=== PATIENT | female | born 1930 | race Caucasian/White ===

== ENCOUNTER 2016-07-18 00:19 | Day surgery (SDC) | payer MEDICARE, OTHER ==
[~2016-07-18] VITALS: Ht 172.7 cm; Wt 88.4 kg
[2016-07-18] VITALS (15 sets, daily range): BP systolic 138–165; BP diastolic 70–78; PULSE 80–93; RESP 14–22; O2SAT 92–98
[~2016-07-18 00:19] MED LIST: AMIT10TA6 PO; ASPI325T32 PO; ATEN50TA PO; CALC-1021 PO; DETROL LA4 M1 PO; ESOM40CA41 PO; FURO40TA4 PO; GLUC-104 PO; IPRA15SP NOSTRIL; LATA2.5D6 AFFECT_EYE; LOVA40TA PO; METF500T4 PO; MULT1CAP33 PO; POTA-62 PO; TIMO5DRO26 AFFECT_EYE; [UNRECOGNIZED DRUG - CODE] PO
[2016-07-18 08:15] LABS: BASOPHILS % (AUTO) 0.6 % (0-3); EOSINOPHILS % (AUTO) 6.1 % (0-5); MONOCYTES % (AUTO) 7.2 % (4-12); Mean Corpuscular Hemoglobin 27.1 pg (27.0-35.0); Mean Corpuscular Volume 88.3 fL (81-100); NEUTROPHILS % (AUTO) 63.4 % (40-74); Platelet Count 182 bil/L (150-400)
[2016-07-18 08:44] LABS: INR 1.03 ratio
[2016-07-18] MEDS ORDERED: LEVO112T3 PO (08:47)
[2016-07-18] MEDS ORDERED: Heparin 1,000 Units/500 mL NS Premix IV ONE (09:12)
[2016-07-18] MEDS ORDERED: Heparin 5,000 Units/500 mL NS Premix IV ONE (09:13)
--- NOTE | 2016-07-18 09:20 | NUR ---
Admitted for a heart cath for documented SOB and Cardiomyopathy. Recent nuclear study at [facility] last week, Dr Casanova will be looking up results Pt denies having any chest pain, but has felt short of breath with movement and generalized leg weakness. Pt walked in today with her daughter, "Harmony" with noted shortness of breath with activity. NSR rates in the 80's not ectopy
[2016-07-18] MEDS ORDERED: fentaNYL-PF 50 mCg/mL 2 mL Inj ONE (09:50)
[2016-07-18] MEDS ORDERED: ATEN25TA PO (15:08)
--- NOTE | 2016-07-18 15:38 | NUR ---
Discharge Pt discharged to home with daughter, VSS on RA, groin site soft non tender after ambulation. Pt and daughter stated verbal understanding of discharge instructions regarding changes to medications, signs of worsening condition and follow up appointments. Pt and Pt's daughter left with personal belongings, discharge instructions IV dc'd intact at approximately 1540.
--- NOTE | 2016-07-18 23:43 | CS94 ---
[address] [address] DIAGNOSTIC CARDIAC CATHETERIZATION PATIENT: ARTIS HOLLEY : 1930 MR#: [id number] ADMIT: 07/18/2016 JOB ID: [id number] SERVICE DATE: 07/18/2016 PROCEDURES PERFORMED: Left heart catheterization with coronary angiography. INDICATIONS: An 86-year-old woman with new diagnosis of cardiomyopathy with focal wall motion abnormalities on her echo as well as focal abnormalities on a recent stress test. She presents for further assessment by cardiac catheterization. DESCRIPTION OF PROCEDURE: Informed consent was obtained. The patient was brought to catheterization laboratory. Bilateral groins were prepped and draped in sterile fashion. The area over the right femoral artery was anesthetized with lidocaine. Using modified Seldinger technique and a micropuncture kit, access was obtained and a 5-Green[place]ic sheath was advanced. Next, a 5-Green[place]ic JL4 catheter was advanced over a wire and used to cannulate the left coronary artery and angiography was obtained. This catheter was removed and a 5-Green[place]ic JR4 catheter was advanced over a wire and used to cannulate the right coronary artery and angiographic views were obtained. This catheter was removed and an angled pigtail catheter was advanced to the left ventricle with fluoroscopic guidance. Left ventricular pressure tracings were obtained and following pullback, aortic pressure change was retained. The case was ended. Angiography of the right femoral access site was obtained prior to achieving hemostasis with manual compression. There were no complications. FINDINGS: CORONARIES: 1. Left main: This is a large vessel which has no evidence of obstructive disease. It is a rather short vessel as well. 2. Circumflex artery: This vessel gives rise to branching obtuse marginal branches which appear free of obstructive disease. The branches actually continue down to supply some blood flow to the cardiac apex. The left anterior descending artery gives rise to a septal spinner iron, 1st diagonal free of obstructive disease. The vessel continues down and does approach the apex where it gets quite narrowed. 3. Right coronary artery: This vessel is small in caliber and has no evidence of obstructive disease. It is a very small obtuse branch supplying blood to the apical segment. 4. Left ventricular pressure tracings: The end-diastolic pressure in the range of 25 to 28 (post-contrast). No gradient on pullback. IMPRESSION: No evidence for obstructive disease to explain the abnormal findings on the stress test or echocardiogram. MTDD
== END 2016-07-18 23:59 | disposition home or self-care (01) ==
LOC: SOUO 00:19 → EDSTATUS 18:29 → SOUO 23:59
PROVIDERS: ATTEND Internal Medicine
DX: I42.9 Cardiomyopathy, unspecified (principal); R94.39 Abnormal result of other cardiovascular function study; Z79.82 Long term (current) use of aspirin; Z79.84 Long term (current) use of oral hypoglycemic drugs
CPT/HCPCS: 36415; 80048; 85025; 85610; 93458; 99152; 99153; C1769; J1200; J1644; J2060; J2250; J3010; J7030; Q9967

== ENCOUNTER 2016-10-11 14:00 | Day surgery (SDC) | payer MEDICARE, OTHER ==
[~2016-10-11] VITALS: Ht 172.7 cm; Wt 94.2 kg
[~2016-10-11 14:00] MED LIST changes: +ATEN25TA PO; +LEVO112T3 PO
[2016-10-11] MEDS ORDERED: Furosemide 10 mg/mL 4 mL Inj ONE (14:41)
[2016-10-11 14:50] VITALS: BP 126/72; PULSE 71; RESP 20; O2SAT 99
[2016-10-11 16:13] VITALS: BP 139/83; PULSE 83; RESP 16; O2SAT 95
--- NOTE | 2016-10-11 18:02 | NUR ---
IV Lasix: Patient arrived via wheelchair to [facility] room 241. Discussed plan of care. IV started and ordered lab drawn. Dr. Casanova contacted to clarify how long patient needs to be monitored after IV Lasix. Patient is okay to go home after about 1 hour of monitoring if she is voiding and stable. Dr. Casanova notified of BMP lab results. Patient monitored for 1.5 hours post Lasix. Voided 1050 mLs of clear yellow urine. Patient lost 2.5 lbs post Lasix. Pre Lasix weight was 207.7 lbs. Post Lasix weight was 205.2 lbs. Education notes and thorough teaching provided on low salt diet. Dr. Casanova's office will contact patient regarding follow up. Patient discharged home via wheelchair in stable condition. Brought down to her car by staff. Copy of today's labs and discharge paperwork provided. Patient expressed appreciation of care.
== END 2016-10-11 23:59 | disposition home or self-care (01) ==
LOC: MOCO 14:00
PROVIDERS: ATTEND Internal Medicine
DX: I50.9 Heart failure, unspecified (principal); I42.9 Cardiomyopathy, unspecified; R60.0 Localized edema; I10 Essential (primary) hypertension; E11.9 Type 2 diabetes mellitus without complications; R06.09 Other forms of dyspnea; Z79.82 Long term (current) use of aspirin; Z79.84 Long term (current) use of oral hypoglycemic drugs
CPT/HCPCS: 36415; 80048; 96374; J1940